=== PATIENT | male | born 1965 | race Two or more races ===

== ENCOUNTER 2024-12-28 17:48 | Inpatient (IN) | payer OTHER ==
[~2024-12-28] VITALS: Ht 177.8 cm; Wt 63.5 kg
[2024-12-28] MEDS ORDERED: CLONAZEPAM0.5 MG (18:10)
[2024-12-28] MEDS ORDERED: PROZAC10 M1 (18:10)
[2024-12-28] MEDS ORDERED: LEVOTHYROXINE25 MCG (18:10)
--- NOTE | 2024-12-28 18:41 | NUR ---
PTE ALERTA Y ESTABLE ACOMPANADO DE MADRE. LA MISMA REFIERE QUE EL PTE PRESENTA DEBILIDAD, DIFICULTAD PARA HABLAR, TRAGAR Y CAMINAR. SE MIDEN S/V, SE REALIZA EKG Y SE PRESENTA A DR. SCHROEDER. SE UBICA A PTE.
--- NOTE | 2024-12-28 18:56 | NUR ---
SE ORIENTA A FAMILIAR SOBRE [place] MEDICO, REFIERE ENTENDER. SE REALIZAN MUESTRAS DE LABORATORIO BAJO MEDIDAS ASEPTICAS. SE COORDINA CT. PENDIENTE RE-EVALUACION MEDICA.
[2024-12-28 19:10] LABS: BASO % 0.4 % (0.1-1.2); EOS # 0.02 (0.04-0.54); EOS % 0.2 % (0.7-7.0); LYMPH # 1.06 (1.18-3.74); LYMPH % 12.8 % (19.3-53.1); MEAN PLATELET VOLUME 10.50 fl (9.4-12.4); MONO # 0.75 (0.24-0.82); MONO % 9.1 % (4.7-12.5); NEUT # 6.32 (1.56-6.13); NEUT % 76.7 % (34.0-71.1); RED CELL DISTRIBUTION WIDTH 12.4 % (11.6-14.4)
[2024-12-28 19:33] LABS: ALT/SGPT 54.0 U/L (12-78); AST/SGOT 30.0 U/L (15-37); BILIRUBIN TOTAL 0.46 mg/dL (0.3-1.2); BUN CREA RATIO 16.0 (7.0-25.0); CREATININE SERUM 0.89 mg/dL (0.70-1.30); GFR 87.19; GLOBULINA 4.4 G/DL (2.4-3.5); GLUCOSE FASTING 105.0 mg/dL (65-100); OSMOLALITY SERUM 282.0 MOSM/KG (275-295)
[2024-12-28 19:45] LABS: COVID-19 AG POSITIVE (NEGATIVE)
--- NOTE | 2024-12-28 23:42 | NUR ---
SE RECIBE PTE ALERTA Y ORIENTADO X3 EN COMPANIA DE FAMILIAR. PTE CON BUEN PATRON RESPIRATORIO, CANALZADO EN BRAZO DERECHO CON ANGIO #[id number], PATENTE Y RECIBIENDO IV FLUIDS ELOINA ORDEN MEDICA. AL MOMENTO PTE EN ESPERA DE LECTURA DE CT SCAN. SE MIDEN SV Y SE MANTIENE BAJO OBSERVACION.
[2024-12-29] MEDS ORDERED: CLONAZEPAM 1 MG TABLET PO STA (00:13)
[2024-12-29] MEDS ORDERED: HYDROCODONE/CHLORPHEN P-STIREX 5 ML ML PO STA (00:51)
--- NOTE | 2024-12-29 07:19 | NUR ---
PTE EN CAMA CON BARANDAS ELEVADAS POR SHAVER SEGURIDAD. PTE AL MOMENTO SE ENCUENTRA DURMIENDO EN COMPANIA DE SHAVER FAMILIAR. PTE CANALIZADA AREA CHIKIS DE EDEMA Y ENROJECIMIENTO. PTE PENDIENTE A CONSULTA. SE PARISH S/V Y SE MANTIENE BAJO OBSERVACION POR CAMBIO.
[2024-12-29] MEDS ORDERED: GUAIFEN/DEXTROMETHORPHAN/PE 10 ML BLIST.PACK PO ONE (10:30)
[2024-12-29] MEDS ORDERED: LEVOTHYROXINE SODIUM 125 MCG TABLET PO SCH (10:30)
[2024-12-29] MEDS ORDERED: ENOXAPARIN SODIUM 40 MG/0.4 ML SYRINGE SUBCUTANEO SCH (13:16)
[2024-12-29] MEDS ORDERED: RINGERS SOLUTION,LACTATED 1,000 ML IV SCH (13:30)
[2024-12-29] MEDS ORDERED: CLONAZEPAM 0.5 MG TABLET PO PRN (13:30)
[2024-12-29 22:54] VITALS: BP 116/70
[2024-12-30 00:29] VITALS: BP 129/62; O2SAT 95
[2024-12-30] MEDS ORDERED: LEVOTHYROXINE SODIUM 125 MCG TABLET PO SCH (06:00)
[2024-12-30 08:08] LABS: BASO % 0.2 % (0.1-1.2); EOS # 0.02 (0.04-0.54); EOS % 0.1 % (0.7-7.0); LYMPH # 1.85 (1.18-3.74); LYMPH % 11.2 % (19.3-53.1); MEAN PLATELET VOLUME 10.40 fl (9.4-12.4); MONO # 1.04 (0.24-0.82); MONO % 6.3 % (4.7-12.5); NEUT # 13.38 (1.56-6.13); NEUT % 81.2 % (34.0-71.1); RED CELL DISTRIBUTION WIDTH 12.3 % (11.6-14.4)
[2024-12-30 08:17] LABS: ALT/SGPT 40.0 U/L (12-78); AST/SGOT 27.0 U/L (15-37); BILIRUBIN TOTAL 0.63 mg/dL (0.3-1.2); BUN CREA RATIO 14.0 (7.0-25.0); CREATININE SERUM 0.74 mg/dL (0.70-1.30); GFR 107.89; GLOBULINA 3.4 G/DL (2.4-3.5); GLUCOSE FASTING 81.0 mg/dL (65-100); OSMOLALITY SERUM 281.0 MOSM/KG (275-295)
[2024-12-30 09:09] VITALS: BP 110/62; O2SAT 92
[2024-12-30] MEDS ORDERED: GUAIFEN/DEXTROMETHORPHAN/PE 10 ML BLIST.PACK PO PRN (17:45)
[2024-12-30 18:04] VITALS: BP 152/82
[2024-12-31 00:35] VITALS: BP 102/62
[2024-12-31 10:13] VITALS: BP 130/66; O2SAT 96
[2024-12-31] MEDS ORDERED: CEFTRIAXONE SODIUM 2,000 MG in 0.9 % SODIUM CHLORIDE 100 ML IV NR (11:00)
[2024-12-31] MEDS ORDERED: CLOPIDOGREL BISULFATE 75 MG TABLET PO NR (12:00)
[2024-12-31] MEDS ORDERED: ATORVASTATIN CALCIUM 40 MG TABLET PO NR (12:00)
[2024-12-31] MEDS ORDERED: AZITHROMYCIN 500 MG VIAL IV SCH (12:00)
[2024-12-31 13:56] LABS: BUN CREA RATIO 11.0 (7.0-25.0); CHOL HDL RATIO 3.3 (0-5.0); CREATININE SERUM 0.74 mg/dL (0.70-1.30); GFR 107.89; GLUCOSE FASTING 105.0 mg/dL (65-100); HDL 36.0 mg/dl (40-60); LDL 66.0 mg/dl (0-130); OSMOLALITY SERUM 280.0 MOSM/KG (275-295); VLDL 17.0 (0-39)
[2024-12-31] MEDS ORDERED: AA 4.25%/CAL/LYTES/DEXT 5% 1,000 ML PERIFERAL SCH (17:00)
[2024-12-31 19:03] VITALS: BP 139/73
[2025-01-01 02:31] VITALS: BP 136/63; O2SAT 95
[2025-01-01 06:59] LABS: BASO % 0.6 % (0.1-1.2); EOS # 0.08 (0.04-0.54); EOS % 0.5 % (0.7-7.0); LYMPH # 1.98 (1.18-3.74); LYMPH % 12.8 % (19.3-53.1); MEAN PLATELET VOLUME 10.60 fl (9.4-12.4); MONO # 1.12 (0.24-0.82); MONO % 7.3 % (4.7-12.5); NEUT # 11.67 (1.56-6.13); NEUT % 75.6 % (34.0-71.1); RED CELL DISTRIBUTION WIDTH 12.7 % (11.6-14.4)
[2025-01-01 07:19] LABS: ERYTHROCYTE SEDIMENTATION RATE 65 mm/hr (0-20)
[2025-01-01 07:35] LABS: ALT/SGPT 49.0 U/L (12-78); AST/SGOT 28.0 U/L (15-37); BILIRUBIN TOTAL 0.51 mg/dL (0.3-1.2); BUN CREA RATIO 11.0 (7.0-25.0); CREATININE SERUM 0.81 mg/dL (0.70-1.30); GFR 97.2; GLOBULINA 4.0 G/DL (2.4-3.5); GLUCOSE FASTING 87.0 mg/dL (65-100); OSMOLALITY SERUM 279.0 MOSM/KG (275-295)
[2025-01-01 08:37] VITALS: BP 142/69; O2SAT 97
[2025-01-01] MEDS ORDERED: CLOPIDOGREL BISULFATE 75 MG TABLET PO SCH (09:00)
[2025-01-01] MEDS ORDERED: CEFTRIAXONE SODIUM 2,000 MG in 0.9 % SODIUM CHLORIDE 100 ML IV SCH (09:00)
[2025-01-01] MEDS ORDERED: ATORVASTATIN CALCIUM 40 MG TABLET PO SCH (09:00)
[2025-01-01 10:16] LABS: URINE APPEARANCE Cloudy; URINE BILIRRUBIN Negative (NEGATIVE); URINE BLOOD Negative; URINE COLOR Yellow; URINE GLUCOSE Negative (NEGATIVE); URINE KETONE Negative (NEGATIVE); URINE LEUKOCYTE Negative; URINE NITRATE Negative; URINE PROTEIN Negative (NEGATIVE); URINE UROBILINOGEN 0.2 E.U./dl
[2025-01-01 10:20] LABS: URINE BACTERIA 14.4 uL (0.0-1933); URINE RBC 3.0 uL (0.0-20.8)
[2025-01-01 10:22] LABS: URINE CAST 0.14 uL (0.0-1.40); URINE EPITHELIAL CELLS 0.1 uL (0.0-38.8); URINE WBC 1.2 uL (0.0-23.2)
[2025-01-01] MEDS ORDERED: LACTULOSE 20 G/30 ML BLIST.PACK PO STA (14:18)
[2025-01-01] MEDS ORDERED: MINERAL OIL 30 ML BLIST.PACK PO STA (14:19)
[2025-01-01] MEDS ORDERED: MAGNESIUM HYDROXIDE 30 ML BLIST.PACK PO STA (14:19)
[2025-01-01 19:28] VITALS: BP 135/78
[2025-01-02 02:22] VITALS: BP 121/69; O2SAT 95
[2025-01-02 08:24] VITALS: BP 129/73
[2025-01-02 17:48] VITALS: BP 123/67; O2SAT 97
[2025-01-03 02:52] VITALS: BP 124/63; O2SAT 95
[2025-01-03 04:53] LABS: BASO % 0.3 % (0.1-1.2); EOS # 0.15 (0.04-0.54); EOS % 1.0 % (0.7-7.0); LYMPH # 1.96 (1.18-3.74); LYMPH % 13.5 % (19.3-53.1); MEAN PLATELET VOLUME 9.30 fl (9.4-12.4); MONO # 1.09 (0.24-0.82); MONO % 7.5 % (4.7-12.5); NEUT # 10.65 (1.56-6.13); NEUT % 73.1 % (34.0-71.1); RED CELL DISTRIBUTION WIDTH 12.7 % (11.6-14.4)
[2025-01-03 05:23] LABS: ALT/SGPT 94.0 U/L (12-78); AST/SGOT 52.0 U/L (15-37); BILIRUBIN TOTAL 0.54 mg/dL (0.3-1.2); BUN CREA RATIO 15.0 (7.0-25.0); CREATININE SERUM 0.89 mg/dL (0.70-1.30); GFR 87.19; GLOBULINA 3.6 G/DL (2.4-3.5); GLUCOSE FASTING 97.0 mg/dL (65-100); OSMOLALITY SERUM 281.0 MOSM/KG (275-295)
[2025-01-03 05:39] LABS: BAND MAN 5.0 %; BASOPHIL MAN 1.0 %; EOSINOPHIL MAN 2.0 %; LYMPHOCYTE MAN 7.0 %; MONOCYTE MAN 7.0 %; MYELOCYTE 4.0 %; NEUTROPHILS MAN 73.0 %
[2025-01-03 08:44] VITALS: BP 100/60
[2025-01-03] MEDS ORDERED: AZITHROMYCIN 500 MG VIAL IV ONE (11:50)
[2025-01-03 16:44] VITALS: BP 136/69; O2SAT 96
[2025-01-03] MEDS ORDERED: ATORVASTATIN CALCIUM 20 MG TABLET PO SCH (17:00)
[2025-01-04 01:26] VITALS: BP 124/67; O2SAT 96
[2025-01-04] MEDS ORDERED: AZITHROMYCIN 500 MG VIAL IV ONE (07:26)
[2025-01-04 09:00] VITALS: BP 109/58
[2025-01-04] MEDS ORDERED: CLOPIDOGREL BIS75 MG PO (15:35)
[2025-01-04] MEDS ORDERED: LIPITOR20 MG PO (15:36)
[2025-01-04] MEDS ORDERED: LEVOTHYROXINE125 MCG PO (15:36)
[2025-01-04] MEDS ORDERED: AMOX-CLAV 875-1 EAC1 PO (15:37)
[2025-01-04 16:00] VITALS: BP 132/69
== END 2025-01-04 16:13 | disposition home or self-care (01) | DRG 177 ==
LOC: ER 17:48 → MEDJ 12-29 13:26 → SEC-K 12-29 13:26 → MEDJ 12-29 18:55
PROVIDERS: Emergency Medicine; ADMIT Internal Medicine; ATTEND Internal Medicine
PROC: B020ZZZ Computerized Tomography (CT Scan) of Brain (ICD-10-PCS; 2024-12-28)
PROC: 8E0ZXY6 Isolation (ICD-10-PCS; principal; 2024-12-29)
PROC: B345ZZZ Ultrasonography of Bilateral Common Carotid Arteries (ICD-10-PCS; 2024-12-29)
PROC: B348ZZZ Ultrasonography of Bilateral Internal Carotid Arteries (ICD-10-PCS; 2024-12-29)
PROC: B246ZZZ Ultrasonography of Right and Left Heart (ICD-10-PCS; 2024-12-29)
PROC: B030ZZZ Magnetic Resonance Imaging (MRI) of Brain (ICD-10-PCS; 2024-12-30)
PROC: BB24ZZZ Computerized Tomography (CT Scan) of Bilateral Lungs (ICD-10-PCS; 2024-12-30)
PROC: 3E0336Z Introduction of Nutritional Substance into Peripheral Vein, Percutaneous Approach (ICD-10-PCS; 2024-12-31)
DX: U07.1 COVID-19 (principal); I63.81 Other cerebral infarction due to occlusion or stenosis of small artery; J69.0 Pneumonitis due to inhalation of food and vomit; D32.0 Benign neoplasm of cerebral meninges; R47.1 Dysarthria and anarthria; R13.19 Other dysphagia; R53.1 Weakness; R47.81 Slurred speech; E03.9 Hypothyroidism, unspecified
CPT/HCPCS: 70553